=== PATIENT | female | born 1995 | race Caucasian/White ===

== ENCOUNTER 2019-01-04 20:38 | Emergency (ER) | payer MEDICAID, SELFPAY ==
[2019-01-04 20:42] VITALS: BP 119/68; PULSE 90; RESP 18; TEMP 36.7; O2SAT 97
--- NOTE | 2019-01-04 20:54 | W.ED.GENAD ---
Discharge Plan Disposition Patient Disposition: HOME Condition: Improving Discharge Details Chief Complaint: Laceration Clinical Impression: Laceration of right index finger Primary Care Provider: Anju Lee ED Provider: Daren Beach Home Meds and New Rx's Prescriptions: No Action DHA 200 mg capsule PO RF: 0 naproxen sodium [Aleve] 220 MG capsule 220 mg PO PRN RF: 0 Discharge Instructions Instructions: Finger Laceration (ED), Skin Adhesive Care (ED) Additional Instructions: return in 7 days to evaluate if the suture are ready for removal. If signs of infection (spreading redness or yellow/white discharge) return sooner Medical Decision Making 23 yo female who comes in with right index finger laceration. she states her bag dropped between her seat and a glass broke, when she reached for it it caused a 1cm laceration to the right anterior finger that is superficial and between mpc and pip joint. Has full rom and intact sensation so do not suspect tendon or nerve injury. Will close with sutures and d/c home, return precautions given Differential Diagnosis laceration, abrasion HPI General Mode of arrival: ambulatory. Date/Time Provider Initiated Documentation: 01/04/19 20:46. Limitations to Documentation: no limitations. Information obtained by: patient. History of Present Illness 23 year old F presents to the emergency department with the chief complaint of right index finger laceration, described as mild, and is localized to the right and upper extremity. Patient reports no radiation. Patient started experiencing this hour(s) (1) and it has been constant. No relieving factors improve symptom(s), No exacerbating factors reported . Patient notes no other symptoms.. Patient did receive the following treatments prior to arrival, none Related Data Home Medications Medication Instructions Recorded Confirmed naproxen sodium [Aleve] 220 mg PO PRN 06/26/17 01/04/19 docosahexanoic acid 200 mg capsule mg PO cap 10/01/18 10/01/18 Allergies Allergy/AdvReac Type Severity Reaction Status Date / Time No Known Allergies Allergy Verified 10/01/18 14:03 General Stated Complaint: Laceration HELADIO: 4 Review of Systems Review of Systems All systems reviewed & are unremarkable except as noted in HPI and below Constitutional Denies chills, Denies fever(s) and Denies weakness ENT Denies change in voice Cardiovascular Denies chest pain and Denies dyspnea Respiratory Denies cough and Denies dyspnea Gastrointestinal Denies abdominal pain, Denies nausea and Denies vomiting Neurologic Denies weakness [facility] Medical History Chronic GERD (Chronic) Migraine (Chronic) ADD (attention deficit disorder) BMI 34.0-34.9,adult Contraception Surgical History Tonsillectomy and adenoidectomy (Inactive) Family History Father Diabetes Mental disorder Grandmother Substance abuse Personal history of malignant neoplasm Social History Smoking/Tobacco Use Status: Current every day Tobacco Type: cigarettes Smoking cigarettes per day: 5 Second Hand Exposure: Yes Alcohol Intake: current Alcohol Intake frequency: holidays/special occasions only Drug use: Occasionally Substance use type: marijuana Seatbelt use: always Do you feel safe at home: Yes Do you feel safe in your relationship?: Yes Female Reproductive History Menstrual control method: implanted Exam Const General: no acute distress Orientation: alert HENMT Head: normal to inspection Ears: external ears normal General nose exam: external nose normal Mouth: moist mucous membranes Eyes General: appearance normal, both eyes and all related structures Neck Neck: normal visual inspection Resp Effort & Inspection: normal respiratory effort and able to speak in complete sentences Cardio Rate: regular rate Skin General skin exam: no rashes or lesions noted Neuro General: alert and oriented x3 Extrem General: full ROM and normal capillary refill Psych Mental Status: mental status grossly normal Course Vital Signs Temperature 36.7 C 01/04/19 20:42 Pulse 90 01/04/19 20:42 Respiratory Rate 18 01/04/19 20:42 Blood Pressure 119/68 01/04/19 20:42 Pulse Oximetry 97 01/04/19 20:42 Temperature 36.7 C 01/04/19 20:42 Temperature Source Skin 01/04/19 20:42 Pulse 90 01/04/19 20:42 Respiratory Rate 18 01/04/19 20:42 Respiratory Effort Non-Labored 01/04/19 20:45 Blood Pressure 119/68 01/04/19 20:42 Blood Pressure Position Sitting 01/04/19 20:42 Pulse Oximetry 97 01/04/19 20:42 Oxygen Delivery Method Room Air 01/04/19 20:42 Oxygen Flow Rate 0 01/04/19 20:42 Pain Level 0 01/04/19 20:42 Procedures Laceration Laceration 1: Site: upper extremity Side (If applicable): right Size (cm): 1 Description: linear Depth: simple, single layer Local Anesthetic: Lidocaine 1% and with Epi Amount of anesthesia used (mL): 4 Pre-repair: wound explored and irrigated extensively Skin layer closed with: nylon and other (as well as skin adhesive) Size (cm): 5-0 Number of sutures: 2
--- NOTE | 2019-01-04 20:57 | ED.GENADUL_ITS ---
Discharge Plan Disposition Patient Disposition: HOME Condition: Improving Discharge Details Chief Complaint: Laceration Clinical Impression: Laceration of right index finger Primary Care Provider: Anju Lee ED Provider: Daren Beach Home Meds and New Rx's Prescriptions: No Action DHA 200 mg capsule PO RF: 0 naproxen sodium [Aleve] 220 MG capsule 220 mg PO PRN RF: 0 Discharge Instructions Instructions: Finger Laceration (ED), Skin Adhesive Care (ED) Additional Instructions: return in 7 days to evaluate if the suture are ready for removal. If signs of infection (spreading redness or yellow/white discharge) return sooner Medical Decision Making 23 yo female who comes in with right index finger laceration. she states her bag dropped between her seat and a glass broke, when she reached for it it caused a 1cm laceration to the right anterior finger that is superficial and between mpc and pip joint. Has full rom and intact sensation so do not suspect tendon or nerve injury. Will close with sutures and d/c home, return precautions given Differential Diagnosis laceration, abrasion HPI General Mode of arrival: ambulatory . Date/Time Provider Initiated Documentation: 01/04/19 20:46 . Limitations to Documentation: no limitations . Information obtained by: patient . History of Present Illness 23 year old F presents to the emergency department with the chief complaint of right index finger laceration, described as mild, and is localized to the right and upper extremity. Patient reports no radiation. Patient started experiencing this hour(s) (1) and it has been constant. No relieving factors improve symptom(s), No exacerbating factors reported . Patient notes no other symptoms.. Patient did receive the following treatments prior to arrival, none Related Data Home Medications Medication Instructions Recorded Confirmed naproxen sodium [Aleve] 220 mg PO PRN 06/26/17 01/04/19 docosahexanoic acid 200 mg capsule mg PO cap 10/01/18 10/01/18 Allergies Allergy/AdvReac Type Severity Reaction Status Date / Time No Known Allergies Allergy Verified 10/01/18 14:03 General Stated Complaint: Laceration HELADIO: 4 Review of Systems Review of Systems All systems reviewed & are unremarkable except as noted in HPI and below Constitutional Denies chills, Denies fever(s) and Denies weakness ENT Denies change in voice Cardiovascular Denies chest pain and Denies dyspnea Respiratory Denies cough and Denies dyspnea Gastrointestinal Denies abdominal pain, Denies nausea and Denies vomiting Neurologic Denies weakness [facility] Medical History Chronic GERD (Chronic) Migraine (Chronic) ADD (attention deficit disorder) BMI 34.0-34.9,adult Contraception Surgical History Tonsillectomy and adenoidectomy (Inactive) Family History Father Diabetes Mental disorder Grandmother Substance abuse Personal history of malignant neoplasm Social History Smoking/Tobacco Use Status: Current every day Tobacco Type: cigarettes Smoking cigarettes per day: 5 Second Hand Exposure: Yes Alcohol Intake: current Alcohol Intake frequency: holidays/special occasions only Drug use: Occasionally Substance use type: marijuana Seatbelt use: always Do you feel safe at home: Yes Do you feel safe in your relationship?: Yes Female Reproductive History Menstrual control method: implanted Exam Const General: no acute distress Orientation: alert HENMT Head: normal to inspection Ears: external ears normal General nose exam: external nose normal Mouth: moist mucous membranes Eyes General: appearance normal, both eyes and all related structures Neck Neck: normal visual inspection Resp Effort & Inspection: normal respiratory effort and able to speak in complete sentences Cardio Rate: regular rate Skin General skin exam: no rashes or lesions noted Neuro General: alert and oriented x3 Extrem General: full ROM and normal capillary refill Psych Mental Status: mental status grossly normal Course Vital Signs Temperature 36.7 C 01/04/19 20:42 Pulse 90 01/04/19 20:42 Respiratory Rate 18 01/04/19 20:42 Blood Pressure 119/68 01/04/19 20:42 Pulse Oximetry 97 01/04/19 20:42 Temperature 36.7 C 01/04/19 20:42 Temperature Source Skin 01/04/19 20:42 Pulse 90 01/04/19 20:42 Respiratory Rate 18 01/04/19 20:42 Respiratory Effort Non-Labored 01/04/19 20:45 Blood Pressure 119/68 01/04/19 20:42 Blood Pressure Position Sitting 01/04/19 20:42 Pulse Oximetry 97 01/04/19 20:42 Oxygen Delivery Method Room Air 01/04/19 20:42 Oxygen Flow Rate 0 01/04/19 20:42 Pain Level 0 01/04/19 20:42 Procedures Laceration Laceration 1: Site: upper extremity Side (If applicable): right Size (cm): 1 Description: linear Depth: simple, single layer Local Anesthetic: Lidocaine 1% and with Epi Amount of anesthesia used (mL): 4 Pre-repair: wound explored and irrigated extensively Skin layer closed with: nylon and other (as well as skin adhesive) Size (cm): 5-0 Number of sutures: 2
[2019-01-04] MEDS: Ondansetron O.D.T. 4 MG TABEF (21:13)
[2019-01-04 21:26] VITALS: BP 119/68; PULSE 90; RESP 18; TEMP 36.7; O2SAT 97
== END 2019-01-04 21:25 | disposition home or self-care (01) ==
LOC: ER 21:31
PROVIDERS: Emergency Provider Emergency Medicine; PCP Nurse Practitioner Family
DX: S61.210A Laceration without foreign body of right index finger without damage to nail, initial encounter (principal); W25.XXXA Contact with sharp glass, initial encounter
CPT/HCPCS: 12001

== ENCOUNTER 2019-01-07 11:48 | Emergency (ER) | payer MEDICAID, SELFPAY ==
[2019-01-07 12:15] VITALS: BP 108/50; PULSE 80; RESP 16; TEMP 37.1; O2SAT 98
--- NOTE | 2019-01-07 12:33 | W.ED.GENAD ---
Discharge Plan Disposition Patient Disposition: HOME Condition: Good Discharge Details Chief Complaint: Recheck Clinical Impression: Encounter for wound re-check Primary Care Provider: Anju Lee ED Provider: Parker Kiser Home Meds and New Rx's Prescriptions: New sulfamethoxazole-trimethoprim [Bactrim DS] 800-160 mg tablet 1 tab PO Q12H 7 Days Qty: 14 RF: 0 No Action DHA 200 mg capsule PO RF: 0 naproxen sodium [Aleve] 220 MG capsule 220 mg PO PRN RF: 0 Discharge Instructions Instructions: Care For Your Stitches (ED), Cellulitis (ED) Additional Instructions: If you notice any red streaking, redness, increased warmth, increased discharge, increased pain, please take the antibiotic immediately and return to the ER immediately for reevaluation. I have included discharge instructions for cellulitis for signs and symptoms you should look out for. Please return in the next 5-7 days for reevaluation and potential suture removal. If you notice any worsening of your symptoms, or any new symptoms such as vomiting, diarrhea, fever, chills, shortness of breath, chest pain, numbness, weakness, or fainting , please return immediately to the emergency department for reevaluation. Please follow up with your primary care provider as soon as possible for reassessment and reevaluation. As always, it was a pleasure participating in your medical care today. Referrals: Anju Lee [Primary Care Provider] - Discharge Data Discharge Date/Time-TO BE ENTERED AT DEPARTURE: 01/07/19 12:44 Medical Decision Making this is a very pleasant 23-year-old female with no significant past medical history who presents today for evaluation of wound check. Patient had 2 simple interrupted sutures placed 3 days ago. She lacerated her right index finger on her dominant hand. 2 patient noted a small amount of discharge, and was concern for potential infection. Physical exam demonstrates no evidence of wound dehiscence, significant redness, significant discharge, and no clinical indications of flexor or extensor tenosynovitis. With a relatively benign appearing exam, no evidence of fluctuant abscess, dehiscence or other abnormality feel she can be safely discharged home. She has no red flags of fever or chills, however out of an abundance of precaution because of the discharge that she was noting minimal amount of tenderness at the suture site, we will start Bactrim for coverage of any potential infection. If the patient notices any significant changes or abnormalities, we recommend that she starts taking the antibiotic, but otherwise hold off for the time being. We discussed red flags for which to return, the importance of close follow-up and repeat wound check, and the she understands. I have extensively reviewed the treatment plan and discharge instructions with the patient and their family. I have addressed all patient concerns at this time. The patient and family was made aware of what symptoms to monitor for that would warrant a return to the emergency department. Discussed the plan with the patient and family, they demonstrate verbal understanding and agreement with our assessment and plan at this time. HPI General Date/Time Provider Initiated Documentation: 01/07/19 12:27. HPI Narrative: This is a 23-year-old female with no significant past medical history, who presents today for evaluation of wound recheck. 3 days ago the patient had a small incision on her right dominant index finger. 2 sutures were placed. She comes back today for evaluation as she noted a small amount of discharge. She denies any redness or fever. She denies any significant pain or chills. No significant pain with movement of the joint. She has no additional complaints. Patient denies any vomiting, diarrhea, red streaking, chest pain shortness of breath fever chills numbness tingling or weakness. No other modifying factors. Related Data Home Medications Medication Instructions Recorded Confirmed naproxen sodium [Aleve] 220 mg PO PRN 06/26/17 01/07/19 docosahexanoic acid 200 mg capsule mg PO cap 10/01/18 10/01/18 sulfamethoxazole-trimethoprim 1 tab PO Q12H 7 Days #14 tab 01/07/19 [Bactrim DS] Previous Rx's Medication Instructions Recorded sulfamethoxazole-trimethoprim 1 tab PO Q12H 7 Days #14 tab 01/07/19 [Bactrim DS] Allergies Allergy/AdvReac Type Severity Reaction Status Date / Time No Known Allergies Allergy Verified 01/07/19 12:17 General Stated Complaint: Recheck HELADIO: 5 Review of Systems Review of Systems All systems reviewed & are unremarkable except as noted in HPI and below PFSH Social History Smoking/Tobacco Use Status: Current every day Tobacco Type: cigarettes Second Hand Exposure: Yes Alcohol Intake: current Alcohol Intake frequency: holidays/special occasions only Drug use: Occasionally Substance use type: marijuana Seatbelt use: always Do you feel safe at home: Yes Do you feel safe in your relationship?: Yes Female Reproductive History Menstrual control method: implanted Exam Narrative Exam Narrative: 1.Const: Well-nourished, Well-developed, appearing stated age 2.Eyes: PERRL, no conjunctival injection, and symmetrical lids. 3.ENT: Atraumatic external nose and ears. Moist MM. Neck: Symmetric, trachea midline, No thyromegaly. 4.CVS: +S1/S2, No murmurs or gallops. Peripheral pulses 2+ and equal in all extremities. Brisk capillary refill in all extremities. 5.RESP: Unlabored respiratory effort. Clear to auscultation bilaterally. No wheezes rales or rhonchi 6.GI: Soft, Nontender/Nondistended, No hepatosplenomegaly. No guarding or rebound. 7.MSK: Normocephalic/Atraumatic, Extremities w/o deformity or ttp No cyanosis or clubbing, Normal movement of all extremities 8.Skin: Warm, Dry. No rashes or lesions. The patient's right index finger demonstrates 2 intact sutures. No evidence of significant redness, red streaking, discharge or infection. No evidence of wound dehiscence. Incision sites are healing well, good wound edge reapproximation. No evidence of active bleeding, or other significant abnormality. No evidence of pain with passive or active movement for both flexion and extension of the finger. No clinical evidence of flexor or extensor tenosynovitis. 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 Sensation grossly intact, no focal neurologic deficits. 10.Psych: (AAO) x3. Appropriate mood and affect Course Vital Signs Temperature 37.1 C 01/07/19 12:15 Pulse 80 01/07/19 12:15 Respiratory Rate 16 01/07/19 12:15 Blood Pressure 108/50 L 01/07/19 12:15 Pulse Oximetry 98 01/07/19 12:15 Temperature 37.1 C 01/07/19 12:15 Temperature Source Skin 01/07/19 12:15 Pulse 80 01/07/19 12:15 Respiratory Rate 16 01/07/19 12:15 Respiratory Effort Non-Labored 01/07/19 12:15 Blood Pressure 108/50 L 01/07/19 12:15 Blood Pressure Position Sitting 01/07/19 12:15 Pulse Oximetry 98 01/07/19 12:15 Oxygen Delivery Method Room Air 01/07/19 12:15 Oxygen Flow Rate 0 01/07/19 12:15 Pain Level 4 01/07/19 12:15
== END 2019-01-07 12:44 | disposition home or self-care (01) ==
PROVIDERS: Emergency Provider Student in an Organized Health Care Education/Training Program; PCP Nurse Practitioner Family
DX: S61.210D Laceration without foreign body of right index finger without damage to nail, subsequent encounter (principal); W25.XXXD Contact with sharp glass, subsequent encounter

== ENCOUNTER 2019-03-16 08:52 | Outpatient (REF) | payer MEDICAID, SELFPAY ==
[2019-03-16 13:33] LABS: Hemoglobin A1C 5.3 % (4.5-6.2)
[2019-03-16 13:48] LABS: TSH (W/Ref FT4) 2.03 uIU/mL (0.358-3.74)
== END 2019-03-16 09:12 ==
LOC: NCHCN 08:52
PROVIDERS: PCP Nurse Practitioner Family; Visit Provider Nurse Practitioner Family
DX: R53.83 Other fatigue (principal)
CPT/HCPCS: 83036; 84443

== ENCOUNTER 2019-04-29 16:11 | Outpatient (REF) | payer MEDICAID, SELFPAY ==
--- NOTE | 2019-04-29 14:20 | PAPFT_PTH ---
PATIENT: LASHAE FORREST LOC: [facility] U#:[id number] AGE/SX: 23/F ROOM: RE04/29/[address]: Noemi Beach NP : 1995 BED: DIS: 04/29/2019 SPEC #: [id number] RECD: 04/29/19 17:59 STATUS: JORGE A NICHOLS #: [id number] KESHAWN: 04/29/19 14:[address]: Noemi Beach NP DEPT: [facility] [place] Cytology RECD BY: Phyllis Boone ENTERED: 04/29/19 17:59 SP TYPE: PAPFT OTHR DR: Anju Lee Tissues: 1 - CX/ENDOCX FOR PAP SMEARS Procedures: PAP THIN PREP/[facility] Screening HPV DNA PROBE Comments: [id number]
== END 2019-04-29 16:31 ==
LOC: LBN 16:11
PROVIDERS: PCP Nurse Practitioner Family; Visit Provider Nurse Practitioner Women's Health
DX: Z12.4 Encounter for screening for malignant neoplasm of cervix (principal)
CPT/HCPCS: 88142; 87624